=== PATIENT | male | born 1960 | race Caucasian/White ===

== ENCOUNTER 2021-12-05 18:10 | Emergency (ER) | payer SELFPAY ==
[2021-12-05 18:57] VITALS: BP 122/70; PULSE 83; RESP 18; TEMP 36.8; BMI 29.5
--- NOTE | 2021-12-05 20:57 | ED_ITS ---
HPI - Headache General Chief Complaint: Headache/Migraine Stated Complaint: Headache body aches fever Time Seen by Provider: 12/05/21 20:25 History of Present Illness HPI Narrative: patient is a 60-year-old gentleman who presents with a 2 day history of headache. Cervical musculature. He complains of some body aches as well. He also has some chronic low back pain and symptoms of fatigue. He has had no recent injuries. No fevers no chills no night sweats no change in objects sym ptoms. He otherwise is in his usual state of health. Related Data Home Medications Medication Instructions Recorded Confirmed levothyroxine 12/05/21 Allergies Allergy/AdvReac Type Severity Reaction Status Date / Time No Known Drug Allergies Allergy Verified 12/05/21 19:03 Review of Systems Status of ROS: Reports: 10 or more systems reviewed and unremarkable except as noted in History and below Exam Narrative: Exam Narrative: EXAM GENERAL: Patient appears comfortable and well. EYES: No scleral icterus. ENT: Tympanic membranes and oropharynx normal. THYROID: no thyroid nodules or thyromegaly. LYMPH: No supraclavicular or cervical lymphadenopathy. SKIN: Visible skin seen during exam normal or with benign process only. EXT: No dependent lower extremity pedal edema. HEART: Regular rate and rhythm with no murmurs, rubs, or gallops. LUNGS: Clear to auscultation bilaterally with no crackles or wheezes. ABD: Soft, non tender, non distended. PSYCH: Good eye contact, speech is not pressured. Neurologic cranial nerves 2-12 grossly intact no focal defects. Const: Vital Signs, click to edit/add: Vital Signs - 24 hr 12/05/21 18:57 Temperature 98.2 F Pulse Rate [Pulse Oximeter] 83 Respiratory Rate 18 Blood Pressure [Ri ght Upper Arm] 122/70 Course Course Hospital Course: I did review his case thoroughly with patient patient's daughter. We did treat him with normal saline, Toradol, Zofran and Benadryl. Reevaluation(s) Time: 21:00 Reevaluation #2: Patient remaining comp Vital Signs Vital signs: Initial Vital Signs Temperature 98.2 F 12/05/21 18:57 Temperature Source Temporal Artery Scan 12/05/21 18:57 Pulse Rate 83 12/05/21 18:57 Pulse Rhythm 12/05/21 18:57 Respiratory Rate 18 07/25/22 18:57 Blood Pressure 122/70 12/05/21 18:57 Blood Pressure Mean 87 12/05/21 18:57 Blood Pressure Position Sitting 12/05/21 18:57 Oxygen Delivery Method 12/05/21 18:57 Vital Signs Temperature 98.2 F 12/05/21 18:57 Pulse Rate 83 12/05/21 18:57 Respiratory Rate 18 12/05/21 18:57 Blood Pressure 122/70 12/05/21 18:57 Temperature 98.2 F 12/05/21 18:57 Pulse Rate 83 12/05/21 18:57 Respiratory Rate 18 12/05/21 18:57 Blood Pressure 122/70 12/05/21 18:57 MDM - Headache MDM Narrative Medical decision making narrative: patient differential includes cluster headache or early myalgias from a viral syndrome. Although his vital signs are stable. Do think that the treating with hydration and anti-inflammatories with outpatient follow-up is reasonable and will proceed with that course of action. Discharge Plan Discharge Clinical Impression: Headache Patient Disposition: Home, Self-Care Condition: Stable Instructions: Acute Headache (ED) Additional Instructions: Rest Fluids Tylenol Motrin Follow up with Primary Doctor if not improved by tomorrow Activity Level: No Restrictions Discharge Diet: Regular Prescriptions: No Action levothyroxine [Synthroid] 0RF Follow Up/Referrals: Provider,Not a Local [Primary Care Provider] - Stand Alone Forms: [employer] Info Instructions
[2021-12-05] MEDS: 0.9 % SODIUM CHLORIDE 1000 ml 1,000 ML IV (20:59)
[2021-12-05] MEDS: KETOROLAC 30 MG/ML inj IVP (20:59)
[2021-12-05] MEDS: diphenhydrAMINE 50 MG/ML inj 25 MG IVP (20:59)
[2021-12-05] MEDS: ONDANSETRON 2 MG/ML inj 4 MG IVP (20:59)
--- NOTE | 2021-12-05 21:15 | ED.NURSE ---
Pt c/o headache with pain that radiates down back and right arm. MD advised and denies need for EKG at this time.
[2021-12-05 21:28] VITALS: BP 123/54; PULSE 78; RESP 16; O2SAT 96
== END 2021-12-05 21:30 | disposition home or self-care (01) ==
PROVIDERS: Emergency Provider Internal Medicine
DX: R51.9 Headache, unspecified (principal)
CPT/HCPCS: 96374; 96375; 99283; J1200; J1885; J2405; J7030